=== PATIENT | female | born 1935 | race African-American/Black ===

== ENCOUNTER → 2017-02-06 | Outpatient (CLI) | payer MEDICARE, OTHER ==
[~2017-02-06] MED LIST: ACETAMINOPHEN P1 TA5 PO; ACETAMINOPHEN PO; ACIPHEX20 MG; ADVAIR 2501 DISK W/D PO; ADVICOR 5001 BOTTLE; ALBUTEROL MININEB NEB; ALBUTEROL0.83 MG/ML IH; ALBUTEROL0.83 MG/ML INH; ALBUTEROL17 GM; ALBUTEROL17 GM INH; ALBUTEROL2.5 MG/0.5 IH; ALLERGY INJECTIONS SUBQ; AMLODIPINE BESY10 MG PO; ASPIRIN; ASPIRIN EC81 M1 PO; ASPIRIN81 M1 PO; ASPIRIN81 M2 PO; ASPIRIN81 MG PO; BEPREVE10 ML; CALCIUM + D 6001 TA1 PO; CALCIUM 5001 TAB PO; CARVEDILOL12.5 MG PO; COREG; COREG PO; COREG12.5 MG PO; DETROL LA PO; DETROL PO; DILANTIN PO; DIOVAN HCT 320/1 TA1 PO; DOCU SOFT100 M1 PO; DOCUSATE SODIU100 MG PO; DOK100 MG PO; ECOTRIN81 M1 PO; EXELON TD; EXELON1 EACH TD; EXELON1 PATCH .2 EXT; FELDENE20 MG; FERRO-TIME325 MG PO; FERROUS GL325 ( 36 ) PO; FISH OIL 1,0001 CAP; FISH OIL 1,001000 MG PO; FLAGYL PO; FLEXERIL PO; FLONASE 0.05% N16 G1; FLONASE16 GM; FLUOXETINE HCL20 M1 PO; FLUTICASONE; FOSAMAX; GAS RELIEF125 MG PO; GAS-X125 MG PO; GLUCOPHAGE500 M1 PO; GLUCOPHAGE500 MG PO; GLUCOPHAGE850 MG PO; HCTZ PO; HYZAAR 100-25 T1 TAB PO; IMDUR30 MG PO; IRON1 TA1 PO; IRON325 ( 65 ) PO; KCL PO; KEPPRA500 M1 PO; KEPPRA500 M2 PO; KLOR-CON 88 ME1 PO; LASIX; LASIX PO; LASIX20 MG PO; LEVAQUIN PO; MEDI-MECLIZINE25 M1 PO; MEDROL; MELOXICAM15 MG PO; METFORMIN; METFORMIN HCL500 M1 PO; MEVACOR PO; MEVACOR40 MG PO; MIRALAX17 GM PO; MOBIC15 MG PO; MOTION SICKNESS25 M4 PO; MUCINEX DM1 TAB.SR .; NATEGLINIDE60 MG PO; NEURONTIN100 MG PO; NEXIUM PO; NEXIUM20 MG PO; NORVASC; OXYGEN; PAIN RELIEF325 M1 PO; PANTOPRAZOLE SO40 MG PO; PATANOL 0.1%; PATANOL5 ML; PATANOL5 ML MC; PATANOL5 ML OU; PERCOCET5/325 PO; PHENYTOIN SODI300 MG PO; POTASSIUM CHLOR8 ME1 PO; POTASSIUM CHLOR8 MEQ PO; POTASSIUM CL PO; PRAVACHOL20 MG PO; PRAVASTATIN SOD20 MG PO; PREDNISONE; PROAIR HFA8.5 GM INH; PROVENTIL5 MG/ML IH; PROZAC PO; PROZAC40 MG; REGLAN; RESTORIL15 MG PO; SELFEMRA20 MG PO; SERTRALINE HCL100 M1 PO; SPIRIVA18 MCG; TEKTURNA HCT 151 TAB PO; TEMAZEPAM; TEMAZEPAM7.5 MG PO; TEQUIN; TOLTERODINE TART4 MG PO; TOPROL XL100 MG PO; TRIBENZOR 40-11 EACH PO; VALSARTAN-HCTZ1 EAC2 PO; VALSARTAN-HCTZ1 EAC3 PO; VESICARE PO; ZITHROMAX
--- NOTE | ~2017-02-06 | MR112 ---
[facility] A Service of [facility] & [facility] RADIOLOGY TEXT RESULTS PATIENT: KINGSLEY GARAY LOCATION: [facility] : 35 UNIT #: [id number] AGE: [address]: Chencho Walden II, MD SEX: F ORDER DR: [id number] [facility] [address] [place], [place] [address] [id number] O MR#: [id number] Acc #: [id number] NAME: KINGSLEY GARAY. : 1935 SEX: F STUDY DATE/TIME: 02/06/2017 15:40 UNIT: [facility] ROOM: STUDY DESCRIPTION: MR Lumbar WWo Contrast Attending Physician: Chencho Walden II., M.D. Referring Physician: Chencho Walden II., M.D. Ordering Physician: Chencho Walden II., M.D. Primary Care Physician: Zofia Rae M.D. MRI CENTER REPORT This report is preliminary unless electronic signature is present. EXAM Lumbar spine MRI with and without contrast HISTORY Back pain for the past 2 years with bilateral leg numbness and weakness. 5 previous back surgeries. The last one was 5 years ago. TECHNIQUE Multiplanar imaging lumbar spine was performed with short and long TR. 15 mL of MultiHance was used. FINDINGS There is a rudimentary disc at S1-S2 for purposes of numbering on this report. In the lower thoracic spine advanced degenerative change is seen at T11-12 with disc space collapse and a posterior osteophyte. Moderate degenerative changes are seen at T12-L1 and L1-2 with disc desiccation and broad-based posterior disc bulging. At the L2-3 level the disc is collapsed. There is a degenerative grade 1 retrolisthesis and a posterior osteophyte causing moderately severe central spinal stenosis. Postoperative changes of fusion are seen from L3-S1. Alignment is satisfactory across the fused levels. There is mild canal narrowing predominately from facet hypertrophy at the L3-4 level. Laminectomies have been performed at L4, L5 and S1. There is a fluid collection seen posterior to the spinal canal extending between the pedicle screws at L4 and L5. The fluid collection measures 4.0 cm from superior to inferior, 3.5 cm from right to left with a maximum thickness of just under 1.0 cm. There is no evidence of marrow edema or abnormal marrow enhancement to suggest vertebral osteomyelitis and there is no evidence of discitis. No paraspinous masses are seen. The conus is unremarkable. No thickening or clumping of the nerve roots in the cauda equina is noted. IMPRESSION 1. Moderately severe central stenosis at L2-3 from advanced degenerative STS. [facility] A Service of [facility] RADIOLOGY TEXT RESULTS PATIENT: KINGSLEY GARAY LOCATION: [facility] : 35 UNIT #: [id number] AGE: [address]: Chencho Walden II, MD SEX: F ORDER DR: disc disease and a degenerative grade 1 retrolisthesis with a prominent posterior osteophyte. 2. Satisfactory appearance across the fused levels from L3-S1. 3. Posterior fluid collection extending between the pedicle screws at L4 and L5. Maximum thickness just under 1.0 cm as described and measured above. 4. Degenerative changes in the upper lumbar and lower thoracic region as described above. The degenerative changes at L2-3 show marked progression when compared to intraoperative plain films of the lumbar spine from 2009. Dictated by... Eliot Read M.D. THIS IS AN ELECTRONICALLY VERIFIED REPORT Eliot Read M.D. at 02/07/2017 4:29 PM Trisha TD: 02/07/2017 12:55 JOB #: [id number] MRI CENTER REPORT COPY
[2017-02-06 16:36] LABS: POC - CREATININE 0.77 mg/dL (0.44-1.03); POC - GFR >60.0 mL/min (>60)
== END | disposition home or self-care (01) ==
LOC: CMRI 14:32
PROVIDERS: Psychiatry & Neurology Neurology
DX: R20.2 Paresthesia of skin (principal); M48.06 Spinal stenosis, lumbar region; M43.16 Spondylolisthesis, lumbar region; M51.36 Other intervertebral disc degeneration, lumbar region; M25.78 Osteophyte, vertebrae; Z98.890 Other specified postprocedural states
CPT/HCPCS: 72158; 82565; A9577

== ENCOUNTER 2017-05-10 15:09 | Emergency (ER) | payer MEDICARE, OTHER ==
--- NOTE | ~2017-05-10 | MR112 ---
[facility] A Service of [facility] & [facility] RADIOLOGY TEXT RESULTS PATIENT: KINGSLEY GARAY LOCATION: [facility] : 35 UNIT #: [id number] AGE: [address]: Alphonso Gu MD SEX: F ORDER DR: [id number] [facility] [address] [place], [place] [address] [id number] E MR#: [id number] Acc #: [id number] NAME: KINGSLEY GARAY. : 1935 SEX: F STUDY DATE/TIME: 05/10/2017 17:56 UNIT: [facility] ROOM: STUDY DESCRIPTION: MR Lumbar WWo Contrast Attending Physician: Alphonso Gu M.D. Ordering Physician: Alphonso Gu M.D. Primary Care Physician: Zofia Rae M.D. MRI CENTER REPORT This report is preliminary unless electronic signature is present. EXAM MRI of the lumbar spine with and without contrast dated 05/10/2017. COMPARISON MRI of the lumbar spine with and without contrast dated 02/06/2017. HISTORY Patient felt the legs getting very weak and could not walk on 05/10/17. Chronic low back pain which is worse today. Patient had similar symptoms of January also when she came here. FINDINGS Multisequence multiplanar imaging of the lumbar spine was obtained with and without contrast. GFR measured greater than 60. 15 mL of MultiHance was administered intravenously. Status post surgery from L3-S1 with bipedicular screws, stabilization rods and posterior fusion with posterior decompression. Intervertebral disc prosthesis are noted from L3-4 to L5-S1, anterior fusion. Disc osteophyte complex are noted in the nonoperative levels, relatively worse at L2-3. Conus terminates at L1-2. These findings appear to be relatively stable since January 2015. There is some postoperative fluid noted posterior to the level of L4 extending down to L5-S1 in the posterior decompression slight noted at L4-L5. It is of maximal axial thickness at L5 measuring 1.1 x 3.4 cm, stable. It probably has a height of 5.4 cm. L1-2: Disc osteophyte complex with mild bilateral facet hypertrophic changes. No significant canal stenosis or neural foraminal narrowing. L2-3: Disc osteophyte complex with central spur. [id number] bilateral facet hypertrophic changes and ligamentum flavum thickening are noted with severe canal stenosis, mild to moderate left and mild right neural foraminal narrowing with mild to moderate bilateral lateral recess stenosis. [facility] A Service of [facility] & [facility] RADIOLOGY TEXT RESULTS PATIENT: KINGSLEY GARAY LOCATION: [facility] : 35 UNIT #: [id number] AGE: [address]: Alphonso Gu MD SEX: F ORDER DR: L3-4: Postoperative changes without canal stenosis or neural foraminal narrowing. L4-5: Postoperative changes with patent canal and neural foramina. L5-S1: Postoperative changes with patent canal and neural foramina. IMPRESSION 1. No significant interval change is seen. 2. Significant postoperative changes are noted with anterior and posterior fusion from the level of L3-S1 as described above with presence of hardware. Posterior decompression with removal of spinous process and portions of the adjacent laminae are noted at L4 and L5. There is a cystic postoperative fluid noted in the postoperative bed posterior to the canal. It is most prominent at the level of L5 measuring 1.1 x 3.4 cm, relatively stable. 3. Degenerative changes are noted in the nonoperative levels, relatively worse at L2-3 with severe canal stenosis. Bilateral lateral recess stenosis and neural foraminal narrowing are noted, relatively stable given the differences in slice selection. Dictated by... Vel Solis M.D. THIS IS AN ELECTRONICALLY VERIFIED REPORT Vel Solis M.D. at 05/13/2017 8:43 PM CPR/cmm TD: 05/12/2017 07:30 JOB #: [id number] MRI CENTER REPORT Page 1 of 1 COPY
[2017-05-10 17:38] LABS: BASOPHIL% 0.5 % (0-2.5); EOSINOPHIL# 0.2 X10e3 (0-0.7); EOSINOPHIL% 3.2 % (0.0-7.0); HEMATOCRIT 40.7 % (35.0-45.0); HEMOGLOBIN 13.5 gm/dL (12.0-16.0); LYMPHOCYTE# 1.9 X10e3 (1.0-3.5); LYMPHOCYTE% 24.7 % (17.0-45.0); MEAN CELL VOLUME 92.7 FL (83-96); MEAN CORPUSCULAR HEMOGLOBIN 30.7 PG (28-34); MEAN CORPUSCULAR HGB CONC 33.1 g/dL (30-36); MEAN PLATELET VOLUME 8.7 FL (6.5-11.5); MONOCYTE# 0.5 X10e3 (0-1.0); MONOCYTE% 7.2 % (3.0-12.0); NEUTROPHIL# 4.9 X10e3 (1.5-7.1); NEUTROPHIL% 64.4 % (40-75); PLATELET COUNT 177 X10e3 (140-420); RED BLOOD COUNT 4.39 X10e (3.90-5.30); RED CELL DISTRIBUTION WIDTH 13.6 % (11.0-15.5); WHITE BLOOD COUNT 7.5 X10e3 (4.0-10.5)
[2017-05-10 17:42] LABS: DIFF IND NO
[2017-05-10 17:47] LABS: URINE SOURCE CLEAN CATCH
[2017-05-10 17:56] LABS: BUN/CREATININE RATIO 17.14; CALCIUM SERUM 9.6 mg/dL (8.4-10.2); CREATININE SERUM 0.7 mg/dL (0.6-1.4); GLOM FILT RATE Estimated 94.2 mL/min (>60); POTASSIUM 3.4 mmol/L (3.5-5.1)
[2017-05-10 18:00] LABS: URINE APPEARANCE CLEAR; URINE BILIRUBIN NEG (NEG); URINE BLOOD 1+ (NEG); URINE COLOR YELLOW; URINE GLUCOSE NEG (NEG); URINE KETONE NEG (NEG); URINE LEUKOCYTE ESTERASE 3+ (NEG); URINE NITRATE POS (NEG); URINE PH 6.5 (5-8); URINE PROTEIN NEG (NEG); URINE SPECIFIC GRAVITY 1.006 (1.003-1.035); URINE UROBILINOGEN 0.2 MG/DL (NEG)
[2017-05-10 18:04] LABS: CULTURE INDICATED? YES; URINE BACTERIA AUWI 2+ (NEGATIVE); URINE SQUAMOUS EPITHELIAL CELL OCC /[HPF]
== END 2017-05-10 21:30 ==
LOC: CED 15:09
PROVIDERS: Emergency Medicine
DX: M54.5 Low back pain (principal); I11.0 Hypertensive heart disease with heart failure; I50.9 Heart failure, unspecified; E11.9 Type 2 diabetes mellitus without complications; I25.10 Atherosclerotic heart disease of native coronary artery without angina pectoris
CPT/HCPCS: 36415; 51702; 72158; 80048; 81003; 85025; 87086; 87088; 87186; 99284; A9577